=== PATIENT | female | born 1965 | race Caucasian/White ===

== ENCOUNTER 2019-10-28 12:11 | Emergency (ER) | payer OTHER ==
[~2019-10-28] VITALS: Ht 165.1 cm; Wt 59.0 kg
[2019-10-28 12:15] VITALS: BP 129/85
[2019-10-28] MEDS ORDERED: CYCLOBENZAPRINE5 MG PO (13:00)
[2019-10-28] MEDS ORDERED: NORCO 5-325 TA1 EAC1 PO (13:00)
== END 2019-10-28 13:06 | disposition home or self-care (01) ==
LOC: ER 12:11
DX: M54.2 Cervicalgia (principal); M54.6 Pain in thoracic spine; M25.512 Pain in left shoulder; G62.9 Polyneuropathy, unspecified; F17.210 Nicotine dependence, cigarettes, uncomplicated; V89.2XXA Person injured in unspecified motor-vehicle accident, traffic, initial encounter; Y93.89 Activity, other specified; Y92.89 Other specified places as the place of occurrence of the external cause; Y99.8 Other external cause status